=== PATIENT | male | born 1990 | race African-American/Black ===

== ENCOUNTER 2017-12-06 17:28 | Emergency (ER) | payer OTHER ==
[2017-12-06 18:00] VITALS: BMI 19.5
--- NOTE | 2017-12-06 18:07 | PDOC ---
History of Present Illness <Carter Aguirre - Last Filed: 12/06/17 19:54> - General History Source: Patient Exam Limitations: No Limitations <Gilma Hdez - Last Filed: 12/06/17 21:44> - General Chief Complaint: Blood Pressure Problem Stated Complaint: PCP SENT/PAIN Time Seen by Provider: 12/06/17 17:58 - History of Present Illness Initial Comments: 12/06/17 21:43 The patient is a healthy 27 year old male with no significant past medical history who presents to the ED s/p abnormal ECG earlier today. The patient was having a PPD placed at a clinic. His blood pressure was high at the clinic and an ECG was ordered. ECG showed a STEMI and patient was sent to the ED. Patient has no complaints of chest pain, shortness of breath, palpitations, nausea, vomiting, lightheadedness, back pain, or neck pain. Patient states in 2012 he was getting a physical to play basketball and had an ECG that was also abnormal and was referred to cardiology and had a stress test and echo that were normal and he was cleared to play. (Gilma Hdez) Past History - Past Medical History COPD: No - Suicide/Smoking/Psychosocial Hx Smoking History: Never smoked Have you smoked in the past 12 months: No Information on smoking cessation initiated: No Hx Alcohol Use: No Drug/Substance Use Hx: No Substance Use Type: None <Carter Aguirre - Last Filed: 12/06/17 19:54> <Gilma Hdez - Last Filed: 12/06/17 21:44> - Past Medical History Allergies/Adverse Reactions: Allergies Allergy/AdvReac Type Severity Reaction Status Date / Time alcohol Allergy Hives Verified 12/06/17 17:56 Home Medications: Ambulatory Orders NK [No Known Home Medication] 12/06/17 Review of Systems <Carter Aguirre - Last Filed: 12/06/17 19:54> - Review of Systems Able to Perform ROS?: Yes All Other Systems: Reviewed and Negative <Gilma Hdez - Last Filed: 12/06/17 21:44> - Review of Systems Comments:: 12/06/17 21:43 CONSTITUTIONAL: No reported: Fever, Chills, Diaphoresis, Generalized Weakness, Malaise, Loss of Appetite HEENT: No reported: Rhinorrhea, Nasal Congestion, Throat Pain, Throat Swelling, Difficulty Swallowing, Mouth Swelling, Ear Pain, Eye Pain, Visual Changes CARDIOVASCULAR: + abnormal ECG No reported: Chest Pain, Syncope, Palpitations, Irregular Heart Rate, Lightheadedness, Peripheral Edema RESPIRATORY: No reported: Cough, Shortness of Breath, SOB with Exertion, Orthopnea, Wheezing , Stridor, Hemoptysis GASTROINTESTINAL: No reported: Abdominal pain, Abdominal Distension, Nausea, Vomiting, Diarrhea, Constipation, Melena, Hematochezia GENITOURINARY: No reported: Dysuria, Frequency, Urgency, Hesitancy, Flank Pain, Genital Pain MUSCULOSKELETAL: No reported: Myalgia, Arthralgia, Joint Swelling, Back pain, Neck Pain SKIN: No reported: Rash, Itching, Pallor HEMEATOLOGIC/IMMUNOLOGIC: No reported: Easy Bleeding, Easy Bruising, Lymphadenopathy, Frequent infections ENDOCRINE: No reported: Unexplained Weight Gain, Unexplained Weight Loss, Heat Intolerance , Cold Intolerance NEUROLOGIC: No reported: Headache, Focal Weakness, Paresthesias, Vertigo, Lightheadedness, Unsteady Gait, Seizure, Mental Status Changes, Incontinence PSYCHIATRIC: No reported: Anxiety, Depression (Gilma Hdez) *Physical Exam <Carter Aguirre - Last Filed: 12/06/17 19:54> <Gilma Hdez - Last Filed: 12/06/17 21:44> - Vital Signs Last Vital Signs Temp Pulse Resp BP Pulse Ox 98.7 F 67 18 139/97 97 12/06/17 20:20 12/06/17 20:20 12/06/17 20:20 12/06/17 20:20 12/06/17 20:20 - Physical Exam Comments: 12/06/17 21:44 GENERAL: The patient is awake, alert, and fully oriented, Nontoxic - in no acute distress. HEAD: Normocephalic, atraumatic. EYES: extraocular movements intact, sclera anicteric, conjunctiva clear. ENT: Normal voice, Moist mucous membranes. NECK: Normal range of motion, supple LUNGS: Breath sounds equal, clear to auscultation bilaterally. No wheezes, no rhonchi, no rales. HEART: Regular rate and rhythm, without murmur, rub or gallop. ABDOMEN: Soft, nontender, No guarding, no rebound.No CVA tenderness EXTREMITIES: Normal range of motion, no edema. No cyanosis. No erythema, or tenderness. NEUROLOGICAL: No facial assymetry, Normal speech, PSYCH: Normal mood, normal affect. SKIN: Warm, Dry, normal turgor, (Gilma Hdez) Heart Score/ECG Review <Carter Aguirre - Last Filed: 12/06/17 19:54> <Gilma Hdez - Last Filed: 12/06/17 21:44> - ECG Impressions Comment:: 12/06/17 19:54 Twelve-lead EKG was performed and reviewed by me. There is normal sinus rhythm with a normal rate. Rightward axis WOLF in anterior leads, biphasic appearing T waves in V3 and V4 twi in inferior leads no old ekgs for comparison (Carter Aguirre) ED Treatment Course - LABORATORY CBC & Chemistry Diagram: 12/06/17 18:00 12/06/17 18:00 <Carter Aguirre - Last Filed: 12/06/17 19:54> - LABORATORY CBC & Chemistry Diagram: 12/06/17 18:00 12/06/17 18:00 <Gilma Hdez - Last Filed: 12/06/17 21:44> - ADDITIONAL ORDERS Additional order review: Laboratory Results 12/06/17 12/06/17 12/06/17 18:00 18:00 18:00 Sodium 140 Potassium 3.5 Chloride 107 Carbon Dioxide 23 Anion Gap 10 BUN 16 Creatinine 1.0 Creat Clearance w eGFR > 60 Random Glucose 122 H Calcium 9.2 Total Bilirubin 1.1 H AST 14 L ALT 26 Alkaline Phosphatase 70 Creatine Kinase 142 Troponin I < 0.02 Total Protein 7.8 Albumin 4.6 Beta HCG, Quant < 1.0 Opiates Screen Negative Methadone Screen Negative Barbiturate Screen Negative Phencyclidine Screen Negative Ur Amphetamines Screen Negative MDMA (Ecstasy) Screen Negative Benzodiazepines Screen Negative Cocaine Screen Negative U Marijuana (THC) Screen Positive 12/06/17 18:00 RBC 5.71 H MCV 85.0 MCHC 35.3 RDW 12.9 MPV 9.0 Neutrophils % 45.9 Lymphocytes % 39.3 Monocytes % 13.3 H Eosinophils % 1.1 Basophils % 0.4 Medical Decision Making <Carter Aguirre - Last Filed: 12/06/17 19:54> <Gilma Hdez - Last Filed: 12/06/17 21:44> - Medical Decision Making 12/06/17 18:04 27y M no known pmhx presents with abnormal EKG. The patient was getting his PPD he was noted to be hypertensive and had an EKG performed that showed a STEMI. The ptw as referred to the EKG. The pt denies any complaints of chest pain, shortness of breath, lightheadedness, palpitations, n/v, diaphoresis. 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 Clinically the pt appears well, with a normal physical exam 12/06/17 18:31 case jose mendosa(covering for dr. veloz) cannot access ekg at this time, but recommends contacting [facility] to get a copy of his ekg. 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 does not feel this is a STEMI. recommends obtaining labs and if neg and pt reamains asypmtmoatic, recommends fu with cardiology as outpatient. 12/06/17 19:59 pts labs are neg pt remains asymptmoatic will dc with cardiology fu on saturday return precutions were discussed I discussed the physical exam findings, ancillary test results and final diagnoses with the patient. I answered all of the patient's questions. The patient was satisfied with the care received and felt comfortable with the discharge plan and treatment plan. The patient will call their primary care physician within 24 hours to arrange follow-up and will return to the Emergency Department with any new, persistent or worsening symptoms. (Carter Aguirre) *DC/Admit/Observation/Transfer - Discharge Dispostion Decision to Admit order: No <Carter Aguirre - Last Filed: 12/06/17 19:54> <Gilma Hdez - Last Filed: 12/06/17 21:44> Diagnosis at time of Disposition: Abnormal EKG, Hypertension - Discharge Dispostion Disposition: HOME Condition at time of disposition: Improved - Referrals Referrals: Bill Yip MD [Staff Physician] - - Patient Instructions Printed Discharge Instructions: DI for High Blood Pressure Additional Instructions: Please follow up with your primary care doctor for further mangement of your blood pressure and Dr. Yip for evaluation of your abnormal EKG. Do not play sports until you follow up with Dr. Yip. Return to the emergency department immediately with ANY new, persistent or worsening symptoms. You MUST call and follow up with your doctor further evaluation of your symptoms. Results were discussed with you. Please make sure your doctor reviews the results of your emergency evaluation. Print Language: BHUTANESE - Attestations Scribe Attestion: 12/06/17 21:44 Documentation prepared by Gilma Hdez, acting as medical billing assistant for Carter Aguirre MD (Gilma Hdez)
[2017-12-06 18:18] LABS: BASO % 0.4 % (0-2.0); EOS % 1.1 % (0-4.5); HEMATOCRIT 48.5 % (35.4-49); HEMOGLOBIN 17.2 GM/dL (11.7-16.9); LYMPH % 39.3 % (8-40); MCH 30.1 pg (25.7-33.7); MCHC 35.3 g/dl (32.0-35.9); MONO % 13.3 % (3.8-10.2); NEUT % 45.9 % (42.8-82.8); PLATELET COUNT 243 K/MM3 (134-434); RBC 5.71 M/mm3 (4.00-5.60); RDW 12.9 % (11.9-15.9)
[2017-12-06 19:16] LABS: ALBUMIN 4.6 g/dl (3.4-5.0); ANION GAP 10 (8-16); BILIRUBIN,TOTAL 1.1 mg/dL (0.2-1.0); BLOOD UREA NITROGEN 16 mg/dL (7-18); CALCIUM 9.2 mg/dL (8.5-10.1); CHLORIDE 107 mmol/L (98-107); CO2 23 mmol/L (21-32); GLUCOSE,RANDOM 122 mg/dL (74-106); POTASSIUM 3.5 mmol/L (3.5-5.1); SGOT/AST 14 U/L (15-37); SGPT/ALT 26 U/L (12-78); SODIUM 140 mmol/L (136-145); TOT PROT 7.8 g/dl (6.4-8.2)
[2017-12-06 19:17] LABS: ALK PHOS 70 U/L (45-117)
[2017-12-06 21:01] VITALS: BP 139/97; PULSE 67; TEMP 98.7
[2017-12-06 21:12] LABS: COCAINE, UR NEGATIVE ng/ml (CUTOFF=300); METHADONE, UR NEGATIVE ng/ml (CUTOFF=300); OPIATES, URI NEGATIVE ng/ml (CUTOFF=300); PHENCYCLIDINE,URINE NEGATIVE ng/ml (CUTOFF=25); URINE AMPHETAMINES NEGATIVE ng/ml (CUTOFF=500); URINE BARBITURATES NEGATIVE ng/ml (CUTOFF=200); URINE BENZODIAZEPINES NEGATIVE ng/ml (CUTOFF=200)
--- NOTE | 2017-12-09 21:59 | EKG ---
Test Reason : Blood Pressure : / mmHG Vent. Rate : 070 BPM Atrial Rate : 070 BPM P-R Int : 152 ms QRS Dur : 098 ms QT Int : 384 ms P-R-T Axes : 081 094 005 degrees QTc Int : 414 ms NORMAL SINUS RHYTHM WITH SINUS ARRHYTHMIA RIGHT ATRIAL ENLARGEMENT INCOMPLETE RIGHT BUNDLE BRANCH BLOCK ST ABNORMALITY SUGGESTS ANTERIOR INFACT ABNORMAL ECG NO PREVIOUS ECGS AVAILABLE Confirmed by TAJ CARRASQUILLO MD ([id number]) on 12/09/2017 9:58:54 PM Referred By: Confirmed By:TAJ CARRASQUILLO MD
== END 2017-12-06 21:30 | disposition home or self-care (01) ==
LOC: JER 17:28
DX: R94.31 Abnormal electrocardiogram [ECG] [EKG] (principal); I10 Essential (primary) hypertension
CPT/HCPCS: 36415; 71045-TC-FY; 80053; 80307; 82550; 84484; 84702; 85025; 93005; 93010; 99284-25

== ENCOUNTER 2018-04-03 18:40 | Emergency (ER) | payer OTHER ==
[2018-04-03 19:30] VITALS: BP 120/74; PULSE 73; TEMP 98; BMI 21.5
--- NOTE | 2018-04-03 19:32 | PDOC ---
Rapid Medical Evaluation Time Seen by Provider: 04/03/18 19:27 Medical Evaluation: Allergies Allergy/AdvReac Type Severity Reaction Status Date / Time alcohol Allergy Hives Verified 12/06/17 17:56 04/03/18 19:28 Pt presents to the ED for chest pain happening earlier today. Had an EKG done at this doctors office and they said it looked irregular and to come to the ED. Pt currently chest pain free. Exam: RRR, CTAB Orders: labs, EKG Pt to proceed to ED for further evaluation Discharge Disposition - Diagnosis Chest pain - Referrals - Patient Instructions - Post Discharge Activity
--- NOTE | 2018-04-03 20:01 | PDOC ---
History of Present Illness - General Chief Complaint: Chest Pain Stated Complaint: PCP SENT/CHEST PAIN Time Seen by Provider: 04/03/18 19:27 - History of Present Illness Initial Comments: 04/03/18 20:00 CHIEF COMPLAINT: chest pain HISTORY OF PRESENT ILLNESS: 27 yo M with hx of atypical chest pain presents to ED with chest pain that occurred earlier at work today. 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 Patient states he was seen here in November for the same type of pain and had an abnormal EKG. Patient states he was seen by cardiology and "they did an EKG there too, and it was abnormal there too. They had me do the stress test and everything too, and the rn new graduate said maybe that's just my regular." On exam patient states he is not currently having the chest pain. He denies that anything makes the pain better or worse. Patient denies any recent travel, surgeries, hormone use. Patient states he "used to smoke marijuana" but never smoked cigarettes or did any other drugs. Patient states he used to play basketball a lot but "ever since I started working I haven't been playing as much." No recent travel or sick contacts. PAST MEDICAL HISTORY: Denies past medical history FAMILY HISTORY: Denies SOCIAL HISTORY: Denies tobacco, alcohol, illicit drug use. SURGICAL HISTORY: Denies ALLERGIES: No known drug allergies REVIEW OF SYSTEMS General/Constitutional: Denies fever or chills. Denies weakness, weight change. HEENT: Denies change in vision. Denies ear pain or discharge. Denies sore throat. Cardiovascular: Chest discomfort earlier, now resolved. Respiratory: Denies cough, wheezing, or hemoptysis. Gastrointestinal: Denies nausea, vomiting, diarrhea or constipation. Denies rectal bleeding. Genitourinary: Denies dysuria, frequency, or change in urination. Musculoskeletal: Denies joint or muscle swelling or pain. Denies neck or back pain. Skin and breasts: Denies rash or easy bruising. Neurologic: Denies headache, vertigo, loss of consciousness, or loss of sensation. PHYSICAL EXAM General Appearance: Well-appearing, appropriately dressed. No apparent distress. HEENT: EOMI, PERRLA, normal ENT inspection, normal voice, TMs normal, pharynx normal. No conjunctival pallor. No photophobia, scleral icterus. Neck: Supple. Trachea midline. No tenderness, rigidity, carotid bruit, stridor , lymphadenopathy, or thyromegaly. Respiratory/Chest: Lungs CTAB. No shortness of breath, chest tenderness, respiratory distress, accessory muscle use. No crackles, rales, rhonchi, stridor , wheezing, dullness Cardiovascular: RRR. S1, S2. No JVD, murmur, bradycardia, tachycardia. Vascular Pulses: Dorsalis-Pedis (R): 2+, Dorsalis-Pedis (L): 2+ Gastrointestinal/Abdominal: Normal bowel sounds. Abdomen soft, non-distended. No tenderness or rebound tenderness. No organomegaly, pulsatile mass, guarding , hernia, hepatomegaly, splenomegaly. Lymphatic: No adenopathy, tenderness. Musculoskeletal/Extremities: Normal inspection. FROM of all extremities, normal capillary refill. Pelvis Stable. No CVA tenderness. No tenderness to extremities, pedal edema, swelling, erythema or deformity. Integumentary: Appropriate color, dry, warm. 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 Fully oriented, alert. Appropriate mood/affect. Motor strength 5/5. No appreciable EOM palsy, facial droop or sensory deficit. 04/03/18 20:02 Past History - Past Medical History Allergies/Adverse Reactions: Allergies Allergy/AdvReac Type Severity Reaction Status Date / Time alcohol Allergy Hives Verified 04/03/18 19:30 Home Medications: Ambulatory Orders NK [No Known Home Medication] 12/06/17 COPD: No - Immunization History Immunization Up to Date: Yes - Suicide/Smoking/Psychosocial Hx Smoking History: Never smoked Have you smoked in the past 12 months: No Hx Alcohol Use: No Drug/Substance Use Hx: No Substance Use Type: None *Physical Exam - Vital Signs Last Vital Signs Temp Pulse Resp BP Pulse Ox 98 F 73 18 120/74 100 04/03/18 19:27 04/03/18 19:27 04/03/18 19:27 04/03/18 19:27 04/03/18 19:27 ED Treatment Course - LABORATORY CBC & Chemistry Diagram: 04/03/18 19:56 04/03/18 19:56 - ADDITIONAL ORDERS Additional order review: Laboratory Results 04/03/18 04/03/18 04/03/18 22:26 20:03 19:56 PT with INR 12.80 INR 1.08 Sodium Potassium Chloride Carbon Dioxide Anion Gap BUN Creatinine Creat Clearance w eGFR Random Glucose Calcium Magnesium Total Bilirubin AST ALT Alkaline Phosphatase Creatine Kinase Troponin I < 0.02 Total Protein Albumin Urine Color Yellow Urine Appearance Clear Urine pH 6.0 Ur Specific [place] 1.021 Urine Protein Negative Urine Glucose (UA) Negative Urine Ketones Negative Urine Blood Negative Urine Nitrite Negative Urine Bilirubin Negative Urine Urobilinogen 2.0 Ur Leukocyte Esterase Negative 04/03/18 04/03/18 19:56 19:56 PT with INR INR Sodium 141 Potassium 3.9 Chloride 108 H Carbon Dioxide 31 Anion Gap 3 L BUN 8 Creatinine 0.9 Creat Clearance w eGFR > 60 Random Glucose 77 Calcium 9.4 Magnesium 2.0 Total Bilirubin 0.4 AST 15 ALT 31 Alkaline Phosphatase 62 Creatine Kinase 127 Troponin I < 0.02 Total Protein 7.0 Albumin 4.0 Urine Color Urine Appearance Urine pH Ur Specific [place] Urine Protein Urine Glucose (UA) Urine Ketones Urine Blood Urine Nitrite Urine Bilirubin Urine Urobilinogen Ur Leukocyte Esterase 04/03/18 19:56 RBC 5.33 MCV 86.4 MCHC 34.8 RDW 11.9 MPV 9.0 Neutrophils % 48.8 Lymphocytes % 40.0 Monocytes % 8.4 Eosinophils % 2.1 D Basophils % 0.7 Medical Decision Making - Medical Decision Making 04/03/18 20:05 27 yo M with hx of atypical chest pain presents to ED with chest pain that occurred earlier at work today. 04/03/18 21:32 Labs unremarkable. No significant change from prior EKG of November this year. Will repeat trop and consult cards. 04/03/18 21:47 Patient states he is currently asymptomatic. 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 Awaiting call from covering MD Escobar. 04/03/18 22:[address] Escobar who reports that patient has had extensive workup in office by Dr. Ayoub; patient likely has "athlete's heart" as possible etiology for abnormal EKG. If second trop WNL, patient safe to go home and f/u outpatient in office. Advised patient to take medication as prescribed and follow up with cards this week. Advised patient of signs and symptoms for return to ED. Patient verbalized understanding and agrees to plan. *DC/Admit/Observation/Transfer Diagnosis at time of Disposition: Abnormal EKG Chest pain Qualifiers: Chest pain type: unspecified Qualified Code(s): R07.9 - Chest pain, unspecified - Discharge Dispostion Disposition: HOME Condition at time of disposition: Stable Decision to Admit order: No - Referrals Referrals: Mark Kelly [Primary Care Provider] - Fernando Ayoub MD [Staff Physician] - - Patient Instructions Printed Discharge Instructions: DI for Atypical Chest Pain Additional Instructions: As discussed, you must follow up with Dr. Langston within the next week for further evaluation of your chest pain. If you develop sudden, crushing chest pain or pressure, difficulty breathing, or any new or worsening symptoms, please return to the ER immediately. - Post Discharge Activity Forms/Work/School Notes: Back to Work
[2018-04-03 20:04] LABS: BASO % 0.7 % (0-2.0); EOS % 2.1 % (0-4.5); MCH 30.1 pg (25.7-33.7); MCHC 34.8 g/dl (32.0-35.9); MEAN CELL VOLUME 86.4 fl (80-96); MONO % 8.4 % (3.8-10.2); NEUT % 48.8 % (42.8-82.8); PLATELET COUNT 190 K/MM3 (134-434); RBC 5.33 M/mm3 (4.00-5.60); RDW 11.9 % (11.9-15.9)
[2018-04-03 20:23] LABS: INR 1.08 (0.83-1.09); PROTHROMBIN TIME (PATIENT) 12.8 SEC (9.7-13.0)
[2018-04-03 20:26] LABS: URINE APPEARANCE CLEAR; URINE BILIRUBIN NEGATIVE (<2.0 mg/dL); URINE COLOR YELLOW; URINE GLUCOSE (UA) NEGATIVE (NEGATIVE); URINE KETONE NEGATIVE (NEGATIVE); URINE LEUK ESTERASE NEGATIVE (NEGATIVE); URINE NITRITE NEGATIVE (NEGATIVE); URINE PROTEIN NEGATIVE (NEGATIVE)
[2018-04-03 20:53] LABS: ALK PHOS 62 U/L (45-117); ANION GAP 3 MMOL/L (8-16); BILIRUBIN,TOTAL 0.4 mg/dL (0.2-1); BLOOD UREA NITROGEN 8 mg/dL (7-18); CALCIUM 9.4 mg/dL (8.5-10.1); CHLORIDE 108 mmol/L (98-107); CO2 31 mmol/L (21-32); CREATININE 0.9 mg/dL (0.55-1.3); GLUCOSE,RANDOM 77 mg/dL (74-106); POTASSIUM 3.9 mmol/L (3.5-5.1); SGOT/AST 15 U/L (15-37); SGPT/ALT 31 U/L (13-61); SODIUM 141 mmol/L (136-145)
--- NOTE | 2018-04-03 23:48 | CON.CARD ---
Consult Consult Specialty:: cardiology Reason for Consultation:: EKG abnormality - History of Present Illness Chief Complaint: asymptomatic History of Present Illness: The patient is a healthy 27 year old male with no significant past medical history who presents to the ED s/p abnormal ECG earlier today. The patient was having a PPD placed at a clinic. His blood pressure was high at the clinic and an ECG was ordered. ECG showed a possible STEMI, and patient was sent to the ED. Patient has no complaints of chest pain, shortness of breath, palpitations, nausea, vomiting, lightheadedness, back pain, or neck pain. Patient states in 2012 he was getting a physical to play basketball and had an ECG that was also abnormal. He was referred to cardiology (Dr. Ayoub) and had an EKG, stress test and echo that were reflective of "athlete's heart", and was cleared to play. - History Source History Provided By: Medical Record - Alcohol/Substance Use Hx Alcohol Use: No - Smoking History Smoking history: Never smoked (no tobacco; occasional marijuana) Have you smoked in the past 12 months: No Home Medications - Allergies Allergies/Adverse Reactions: Allergies Allergy/AdvReac Type Severity Reaction Status Date / Time alcohol Allergy Hives Verified 04/03/18 19:30 - Home Medications Home Medications: Ambulatory Orders NK [No Known Home Medication] 12/06/17 Family Disease History - Family Disease History Family History: Denies Review of Systems - Review of Systems Constitutional: reports: No Symptoms Eyes: reports: No Symptoms HENT: reports: No Symptoms Neck: reports: No Symptoms Cardiovascular: reports: No Symptoms Respiratory: reports: No Symptoms Gastrointestinal: reports: No Symptoms Genitourinary: reports: No Symptoms Breasts: reports: No Symptoms Reported Musculoskeletal: reports: No Symptoms Integumentary: reports: No Symptoms Neurological: reports: No Symptoms Endocrine: reports: No Symptoms Hematology/Lymphatic: reports: No Symptoms Psychiatric: reports: No Symptoms Vital Signs: Vital Signs Temperature 98 F 04/03/18 19:27 Pulse Rate 73 04/03/18 19:27 Respiratory Rate 18 04/03/18 19:27 Blood Pressure 120/74 04/03/18 19:27 O2 Sat by Pulse Oximetry (%) 100 04/03/18 19:27 - Other Data Labs, Other Data: CBC, BMP 04/03/18 19:56 04/03/18 19:56 INR, PTT INR 1.08 (0.83-1.09) 04/03/18 19:56 Troponin, BNP 04/03/18 04/03/18 19:56 22:26 Troponin I < 0.02 < 0.02 Troponin, BNP 04/03/18 04/03/18 19:56 22:26 Troponin I < 0.02 < 0.02 Imaging - Results EKG: Image Reviewed (NSR; normal axis; marked STT changes percordially, I, and avL (noted also on 11/2017 EKG).) Problem List - Problems (1) Abnormal EKG Assessment/Plan: Cardiac workup 11/2017, which included EKG, ECHO (cardiac mass index evaluated) , and stress treadmill ECHO, indicated pt has an athletic heart. TNI negative. From a cardiac perspective, pt may be followed as an outpatient. Code(s): R94.31 - ABNORMAL ELECTROCARDIOGRAM [ECG] [EKG] (2) Hypertension Code(s): I10 - ESSENTIAL (PRIMARY) HYPERTENSION
--- NOTE | 2018-04-04 09:26 | EKG ---
Test Reason : Blood Pressure : / mmHG Vent. Rate : 057 BPM Atrial Rate : 060 BPM P-R Int : 156 ms QRS Dur : 092 ms QT Int : 380 ms P-R-T Axes : 049 082 005 degrees QTc Int : 369 ms SINUS BRADYCARDIA INCOMPLETE RIGHT BUNDLE BRANCH BLOCK NONSPECIFIC T WAVE ABNORMALITY ABNORMAL ECG Confirmed by RILEY RICHARDSON MD ([id number]) on 04/04/2018 9:26:41 AM Referred By: Confirmed By:RILEY RICHARDSON MD
[2018-04-04 12:27] LABS: CHOLESTEROL 124 mg/dL (50-200); HDL CHOLESTEROL 40 mg/dL (40-60); TRIGLYCERIDES 238 mg/dL (0-150)
== END 2018-04-04 01:06 | disposition home or self-care (01) ==
LOC: JER 18:40
DX: R07.9 Chest pain, unspecified (principal); R94.31 Abnormal electrocardiogram [ECG] [EKG]; I10 Essential (primary) hypertension
CPT/HCPCS: 36415; 71046-TC-FY; 80053; 80061; 81003; 82550; 83721; 83735; 84443; 84484; 85025; 85610; 93005; 93010; 99283-25

== ENCOUNTER 2018-04-05 13:48 | Emergency (ER) | payer OTHER ==
[2018-04-05 13:59] VITALS: TEMP 97.9; BMI 21.5
--- NOTE | 2018-04-05 14:14 | PDOC ---
History of Present Illness - General Chief Complaint: Chest Pain Stated Complaint: CHEST PAIN Time Seen by Provider: 04/05/18 14:12 - History of Present Illness Initial Comments: 04/05/18 14:51 The patient is a 27 year old male with a history of HTN who presents for evaluation of chest pain. The patient reports that he has been having intermittent chest pain over the past week associated with lifting heavy objects. He presented to the ED 2 days ago after having an abnormal ekg. He was evaluated and cleared by cardiology had has had a negative stress test and echocardiogram. He presents today because of continued intermittent chest pain while at work today although he reports that his symptoms have resolved and he is currently asymptomatic. He otherwise denies fevers, chills, SOB, nausea, vomiting, abdominal pain, or changes with urination or bowel movements. Past History - Past Medical History Allergies/Adverse Reactions: Allergies Allergy/AdvReac Type Severity Reaction Status Date / Time alcohol Allergy Hives Verified 04/03/18 19:30 Home Medications: Ambulatory Orders NK [No Known Home Medication] 12/06/17 COPD: No HTN: Yes (was on meds - no longer) - Immunization History Immunization Up to Date: Yes - Suicide/Smoking/Psychosocial Hx Smoking History: Never smoked Have you smoked in the past 12 months: No Hx Alcohol Use: No Drug/Substance Use Hx: No Substance Use Type: None Review of Systems - Review of Systems Comments:: 04/05/18 14:54 Constitutional: No fevers, chills, fatigue, malaise HEENT: No Rhinorrhea, nasal congestion, visual changes Cardiovascular: Chest pain. No syncope, palpitations, lightheadedness Respiratory: No Cough, SOB, Hemoptysis, Gastrointestinal: No Abdominal pain, Nausea, Vomiting, Constipation, Diarrhea, Melena Genitourinary: No Dysuria, Frequency, Urgency, Hesitancy, Hematuria, Flank pain Musculoskeletal: No Myalgia, arthralgia Skin: No rashes, itching, bruising, pallor Neurologic: No Headache, Dizziness, Numbness, Weakness, or Tingling Psychiatric: No Hallucinations. No SI or HI *Physical Exam - Vital Signs Last Vital Signs Temp Pulse Resp BP Pulse Ox 97.9 F 57 L 16 119/77 100 04/05/18 13:53 04/05/18 13:53 04/05/18 13:53 04/05/18 13:53 04/05/18 13:53 - Physical Exam Comments: 04/05/18 14:54 General Appearance: Nourished. No Apparent Distress HEENT: No Pharyngeal Erythema, Tonsillar Exudate, Tonsillar Erythema Neck: No Cervical Lymphadenopathy Respiratory/Chest: Lungs Clear, Normal Breath Sounds. No Crackles, Rales, Rhonchi, Wheezing Cardiovascular: Regular Rhythm, Regular Rate. No Murmur, Gallops, Rubs Gastrointestinal/Abdominal: Normal Bowel Sounds, Soft. No Guarding, Rebound, Tenderness Musculoskeletal: No CVA Tenderness Extremity: Normal Capillary Refill Integumentary: Normal Color, Dry, Warm Neurologic: Fully Oriented, Alert, Normal Mood/Affect, Normal Response, Heart Score/ECG Review #1 ECG reviewed & interpreted by me at: 14:54 General ECG Interpretation: Sinus Rhythm, Normal Rate, Normal Intervals, No acute ischemic changes Compared to previous ECG there are: No significant change (04/03/18) ED Treatment Course - LABORATORY CBC & Chemistry Diagram: 04/05/18 14:49 04/05/18 14:49 Medical Decision Making - Medical Decision Making 04/05/18 14:55 The patient is a 27 year old male with a history of HTN who presents for evaluation of chest pain. Differential includes but is not limited to: Musculoskeletal, ACS, Infectious, Metabolic Derangement. Given the patient's history and physical exam, it is possible his symptoms are musculoskeletal in nature. However, we will obtain a cbc, cmp, troponin, ekg to evaluate further. We will continue to monitor and reassess while here in the ED. 04/05/18 15:18 CBC, cmp, troponin are unremarkable. Given the patient's recent cardiology evaluation and that he appears clinically well on exam, we are comfortable discharging the patient home with primary care provider and cardiology follow up. We discussed the results, plan, and return precautions with the patient who voiced understanding and is agreeable with the plan. *DC/Admit/Observation/Transfer Diagnosis at time of Disposition: Chest pain Qualifiers: Chest pain type: unspecified Qualified Code(s): R07.9 - Chest pain, unspecified - Discharge Dispostion Disposition: HOME Condition at time of disposition: Stable Decision to Admit order: No - Referrals Referrals: Mark Kelly [Primary Care Provider] - Fernando Ayoub MD [Staff Physician] - - Patient Instructions Printed Discharge Instructions: DI for Atypical Chest Pain Additional Instructions: Please return to the ER if you experience concerning or worsening symptoms including worsening difficulty breathing, weakness, or chest pain. Your lab results were normal here in the ER. Please call to schedule a follow up appointment with your primary care provider within 2-3 days to discuss your ER visit and further management of your symptoms. - Post Discharge Activity Forms/Work/School Notes: Back to Work
--- NOTE | 2018-04-05 14:46 | PDOC ---
Attending Attestation - Resident Resident Name: Valdo Whatley - ED Attending Attestation I have performed the following: I have examined & evaluated the patient, The case was reviewed & discussed with the resident, I agree w/resident's findings & plan - HPI HPI: 04/05/18 15:37 The patient is a 27 year old male who presents to the emergency department with intermittent chest pain for the past two days. Patient states the chest pain is exacerbated with heavy lifting. Patient was seen in this ER for similar symptoms two days ago after having an abnormal EKG. Patient was also evaluated by a needle control cheniller at that time and cleared to go home. Patient had an ECHO and stress test back in 11/2017 which indicated the patient has an athletic heart. Patient denies any chest pain in the ER. The patient denies chest pain, shortness of breath, headache and dizziness. Denies fever, chills, nausea, vomit, diarrhea and constipation. Denies dysuria, frequency, urgency and hematuria. Allergies: NKA Past surgical history: None reported. Social history: No reported alcohol, drug, or cigarette use. PCP: Dr. Kelly - Physicial Exam PE: 04/05/18 15:38 NAD, well appearing, MMM, nl conjunctiva, anicteric; neck supple. lungs clear, RRR, abdomen soft nontender. SOLORIO x4, no focal neuro deficits. No peripheral edema. normal color for ethnicity, WWP. - Medical Decision Making 04/05/18 15:38 Phynn 27 year old male with no significant past medical history who presents to the ED s/p abnormal ECG with elevated BP. who was seen 04/03/18 by cards in the ED. Cardiac workup 11/2017, which included EKG, ECHO (cardiac mass index evaluated), and stress treadmill ECHO, suggestive findings of athletic heart. vitals wnl, well appearing. chest pain free trop neg, labs and lytes wnl. prior records reviewed. EKG with SHAM[facility], unchanged from previous. nonspecific T wave abnormalities in lateral and inferior leads. upsloping WOLF in precordial leads, unchanged from prior ones. f/u Dr. Ayoub, who performed initial assessment 11/2017, and cleared from cardiology standpoint to return to activity and basketball. also has PCP appt this week. Pt to be discharged in stable condition. Patient and family made aware of impression and plan, return precautions discussed (including but not limited to worsening pain or symptoms), fevers, or signs of infection, chest pain, respiratory distress, inability to tolerate oral intake, dehydration, syncope, or neurologic changes). Follow up with PMD and/or specialist as recommended, follow up information provided, take medications as instructed for duration of time. continue with supportive care, avoid triggers and precipitants. All questions answered to patient's satisfaction and expressed understanding and comfort with this. 04/05/18 15:41
[2018-04-05 14:55] LABS: BASO % 0.7 % (0-2.0); EOS % 1.4 % (0-4.5); HEMOGLOBIN 16.3 GM/dL (11.7-16.9); LYMPH % 37.8 % (8-40); MCH 29.8 pg (25.7-33.7); MCHC 34.6 g/dl (32.0-35.9); MEAN PLT VOLUME 8.6 fl (7.5-11.1); MONO % 7.4 % (3.8-10.2); NEUT % 52.7 % (42.8-82.8); PLATELET COUNT 181 K/MM3 (134-434); RBC 5.47 M/mm3 (4.00-5.60); RDW 11.9 % (11.9-15.9); WHITE BLOOD COUNT 4.7 K/mm3 (4.0-10.0)
[2018-04-05 15:14] LABS: ALBUMIN 4.4 g/dl (3.4-5.0); ALK PHOS 60 U/L (45-117); ANION GAP 5 MMOL/L (8-16); BILIRUBIN,TOTAL 0.5 mg/dL (0.2-1); BLOOD UREA NITROGEN 12 mg/dL (7-18); CALCIUM 9.3 mg/dL (8.5-10.1); CHLORIDE 109 mmol/L (98-107); CO2 29 mmol/L (21-32); CREATININE 0.9 mg/dL (0.55-1.3); GLUCOSE,RANDOM 83 mg/dL (74-106); POTASSIUM 4.3 mmol/L (3.5-5.1); SGOT/AST 27 U/L (15-37); SGPT/ALT 41 U/L (13-61); SODIUM 143 mmol/L (136-145); TOT PROT 7.8 g/dl (6.4-8.2)
[2018-04-05 15:49] VITALS: BP 136/91; PULSE 62
--- NOTE | 2018-04-06 11:11 | EKG ---
Test Reason : Blood Pressure : / mmHG Vent. Rate : 053 BPM Atrial Rate : 053 BPM P-R Int : 158 ms QRS Dur : 090 ms QT Int : 394 ms P-R-T Axes : 029 073 015 degrees QTc Int : 369 ms SINUS BRADYCARDIA WITH SINUS ARRHYTHMIA NONSPECIFIC T WAVE ABNORMALITY ABNORMAL ECG WHEN COMPARED WITH ECG OF 03-APR-2018 19:27, INCOMPLETE RIGHT BUNDLE BRANCH BLOCK IS NO LONGER PRESENT Confirmed by GUSTAVO ARAMBULA, HENRIK ([id number]) on 04/06/2018 11:10:55 AM Referred By: Confirmed By:HENRIK CHEN MD
== END 2018-04-05 15:48 | disposition home or self-care (01) ==
LOC: JER 13:48
DX: R07.9 Chest pain, unspecified (principal); I10 Essential (primary) hypertension
CPT/HCPCS: 36415; 80053; 82550; 84484; 85025; 93005; 93010; 99282-25

== ENCOUNTER 2018-08-09 12:32 | Emergency (ER) | payer OTHER ==
[2018-08-09 12:48] VITALS: BP 140/84; PULSE 71; TEMP 98.6; BMI 23.6
--- NOTE | 2018-08-09 13:04 | PDOC ---
History of Present Illness - General Chief Complaint: Bone Injury Stated Complaint: POSSIBLE KNEE FRACTURE Time Seen by Provider: 08/09/18 12:45 History Source: Patient Exam Limitations: No Limitations - History of Present Illness Initial Comments: 08/09/18 12:57 27 yo male pmh of bilateral knee hyperextention presents to the ED with pain and swelling to the right knee. Pt states he was playing basketball and when trying to drive to the basket with his right knee bent, he collided with another players knee. Pt felt sudden onset pain described as a vibration running up his leg and noted a "line" in the center of his patella that worsens with knee flexion. Pt did not attempt to ambulate and was BIBA with a knee splint. Denies numbness/tingling or weakness in the right leg. Past History - Past Medical History Allergies/Adverse Reactions: Allergies Allergy/AdvReac Type Severity Reaction Status Date / Time alcohol Allergy Hives Verified 04/03/18 19:30 Home Medications: Ambulatory Orders NK [No Known Home Medication] 12/06/17 COPD: No HTN: Yes (was on meds - no longer) - Immunization History Immunization Up to Date: Yes - Suicide/Smoking/Psychosocial Hx Smoking History: Never smoked Have you smoked in the past 12 months: No Hx Alcohol Use: No Drug/Substance Use Hx: No Substance Use Type: None Review of Systems - Review of Systems Constitutional: No: Weakness Respiratory: No: Shortness of Breath Cardiac (ROS): No: Chest Pain Musculoskeletal: Yes: Joint Pain (right knee), Other (right knee pain and swelling with difficulty straightening leg). No: Back Pain *Physical Exam - Vital Signs Last Vital Signs Temp Pulse Resp BP Pulse Ox 98.6 F 71 18 140/84 99 08/09/18 12:42 08/09/18 12:42 08/09/18 12:42 08/09/18 12:42 08/09/18 12:42 - Physical Exam General Appearance: Yes: Nourished, Appropriately Dressed. No: Apparent Distress Respiratory/Chest: positive: Lungs Clear Cardiovascular: positive: Regular Rhythm, Regular Rate Vascular Pulses: Dorsalis-Pedis (R): 4+, Doralis-Pedis (L): 4+ Comments:: 08/09/18 14:07 equal popliteal pulses Gastrointestinal/Abdominal: positive: Flat, Soft. negative: Tenderness Extremity: positive: Normal Capillary Refill, Other (difficulty with straight leg raise on the right due to inability to raise. ). negative: Normal Inspection (right knee deformity, joint space palpable, patellar tendon on right weak on contraction ), Coldness, Pedal Edema, Calf Tenderness Neurologic: positive: Fully Oriented, Alert. negative: Motor Strength 5/5 ( unable to extend knee on the right) Moderate Sedation - Procedure Monitoring Vital Signs: Procedure Monitoring Vital Signs Temperature 98.6 F 08/09/18 12:42 Pulse Rate 71 08/09/18 12:42 Respiratory Rate 18 08/09/18 12:42 Blood Pressure 140/84 08/09/18 12:42 O2 Sat by Pulse Oximetry (%) 99 08/09/18 12:42 ED Treatment Course - RADIOLOGY Radiology Studies Ordered: Category Date Time Status KNEE 3 POS-RIGHT [RAD] Stat Radiology 08/09/18 12:54 Ordered Medical Decision Making - Medical Decision Making 08/09/18 14:10 27 yo male presents to the ED after right knee pain after collision during basketball game. Palpable deformity in right knee, joint space not covered by patella. Patient has no effort with knee extension without significant pain. Vitals stable Knee x ray shows no acute fracture Ortho consulted (CAROLINE [place] for Dr. Sierra) made aware no fracture visualized but superiorly displaced patella with difficulty straightening right leg. Likely Patellar tendon rupture. Pt with see Ortho in clinic Saturday. Pt placed in knee immobilizer, given RICE precautions and strict return precautions Safe for DC home *DC/Admit/Observation/Transfer Diagnosis at time of Disposition: Knee pain Qualifiers: Chronicity: acute Laterality: right Qualified Code(s): M25.561 - Pain in right knee - Discharge Dispostion Disposition: HOME Condition at time of disposition: Good Decision to Admit order: No - Referrals Referrals: Allen Sierra MD [Staff Physician] - - Patient Instructions Printed Discharge Instructions: How to Use Crutches, DI for Knee Sprain, DI for Patella Fracture, DI for Knee Pain Additional Instructions: Please see your Primary Doctor within the next 48 hours. Go to the Orthopedic Doctors office, Dr. Sierra on Saturday for an assessment, they are expecting you. Take over the counter Motrin for pain and swelling, rest, ice, compress and elevate the knee. Keep the knee immobilizer in place until your appointment with Orthpedics. Use crutches and bare weight as tolerated. Return to the ER for new or concerning symptoms including but not limited to: numbness/tingling down the leg, severe pain or inability to bare weight. Thank you - Post Discharge Activity Forms/Work/School Notes: Back to Work
[2018-08-09] MEDS ORDERED: IBUPROFEN 600 MG TABLET (FP) PO ONE ×2 (13:20→13:24)
--- NOTE | 2018-08-09 14:08 | PDOC ---
Attending Attestation - Resident Resident Name: Fabio Gonzáles - ED Attending Attestation I have performed the following: I have examined & evaluated the patient, The case was reviewed & discussed with the resident, I agree w/resident's findings & plan, Exceptions are as noted - HPI HPI: 08/09/18 14:08 The patient is a 27 year old male who presents to the emergency department with pain and swelling to the right knee. Patient notes playing basketball with friends today when a friend collided with his bent right knee with immediate pain and difficulty bearing weight on that leg. He has not ambulated since the fall. He denies any numbness/tingling or weakness or numbness to the leg. He denies any recent fevers, chills, headache or dizziness. He denies any recent nausea, vomit, diarrhea or constipation. He denies any recent chest pain or shortness of breath. He denies any recent dysuria, frequency, urgency or hematuria. Allergies:Alcohol. - Physicial Exam PE: 08/09/18 14:09 "GENERAL: Awake, alert, and fully oriented, in no acute distress. HEAD: No signs of trauma EYES: PERRLA, EOMI, sclera anicteric, conjunctiva clear ENT: Auricles normal inspection, hearing grossly normal, nares patent, oropharynx clear without exudates. Moist mucosa NECK: Nontender, no stepoffs, Normal ROM, supple, no lymphadenopathy, JVD, or masses LUNGS: Breath sounds equal, clear to auscultation bilaterally. No wheezes, and no crackles HEART: Regular rate and rhythm, normal S1 and S2, no murmurs, rubs or gallops ABDOMEN: Soft, nontender, normoactive bowel sounds. No guarding, no rebound. No masses EXTREMITIES: + RLE with high riding patella, no bony tenderness, distal pulses and sensation intact NEUROLOGICAL: Cranial nerves II through XII intact. 5/5 strength and sensation in all extremities, Normal speech, normal gait, normal cerebellar function SKIN: Warm, Dry, normal turgor, no rashes or lesions noted. - Medical Decision Making 08/09/18 14:10 27 M with R knee pain and swelling. Exam notable for high-riding patella. Suspect patella tendon rupture. - XR 08/09/18 14:21 No acute fx, suspect patellar tendon rupture Discussed with ortho, who recommends knee immobilizer and outpt f/u Pt is well appearing, with normal vitals. Clinically stable for DC at this time. I discussed the physical exam findings, ancillary test results and final diagnoses with the patient. I answered all of the patient's questions. The patient was satisfied with the care received and felt comfortable with the discharge plan and treatment plan. The patient agrees to follow up with the primary care physician within 24-72 hours.
== END 2018-08-09 14:39 | disposition home or self-care (01) ==
LOC: JER 12:32
PROC: 2W3QXYZ Immobilization of Right Lower Leg using Other Device (ICD-10-PCS; principal; 2018-08-09)
DX: S89.81XA Other specified injuries of right lower leg, initial encounter (principal); S83.8X1A Sprain of other specified parts of right knee, initial encounter; W51.XXXA Accidental striking against or bumped into by another person, initial encounter; Y93.67 Activity, basketball; Y92.310 Basketball court as the place of occurrence of the external cause; Y99.8 Other external cause status
CPT/HCPCS: 29530; 73552-TC-RT-FY; 73562-TC-RT-FY; 73590-TC-RT-FY; 99282-25

== ENCOUNTER 2022-07-29 00:37 | Emergency (ER) | payer BC, OTHER ==
[2022-07-29 01:00] VITALS: BP 149/92; PULSE 60; RESP 16; TEMP 98; BMI 23.7
[2022-07-29] MEDS ORDERED: IBUPROFEN 600 MG TABLET (FP) PO ONE ×3 (01:24→02:14)
[2022-07-29 02:09] LABS: BASO % 0.6 % (0-2.0); EOS % 2.2 % (0-4.5); HEMOGLOBIN 16.7 GM/dL (11.7-16.9); LYMPH % 44.1 % (8-40); MCH 30.2 pg (25.7-33.7); MCHC 35.6 g/dl (32.0-35.9); MEAN CELL VOLUME 84.9 fl (80-96); MEAN PLT VOLUME 9.5 fl (7.5-11.1); MONO % 9.2 % (3.8-10.2); NEUT % 43.9 % (42.8-82.8); PLATELET COUNT 187 10^3/uL (134-434); RBC 5.53 M/mm3 (4.00-5.60); RDW 12.8 % (11.9-15.9); WHITE BLOOD COUNT 6.2 K/mm3 (4.0-10.0)
[2022-07-29 02:27] LABS: INR 1.15 (0.83-1.09); PROTHROMBIN TIME (PATIENT) 13.3 SEC (9.7-13.0)
[2022-07-29 02:41] LABS: ALBUMIN 4.4 g/dl (3.4-5.0); CALCIUM 8.8 mg/dL (8.5-10.1)
[2022-07-29 02:42] LABS: BLOOD UREA NITROGEN 12.3 mg/dL (7-18)
[2022-07-29 02:44] LABS: CREATININE 0.9 mg/dL (0.55-1.3)
[2022-07-29 02:46] LABS: BILIRUBIN,TOTAL 0.5 mg/dL (0.2-1); TOT PROT 7.7 g/dl (6.4-8.2)
== END 2022-07-29 03:17 | disposition home or self-care (01) ==
LOC: JER 00:37
DX: R07.89 Other chest pain (principal)
CPT/HCPCS: 0241U-QW; 36415; 71046-TC-FY; 80053; 84484; 85025; 85610; 93005; 93010; 99285-25